=== PATIENT | male | born 1965 | race Caucasian/White ===

== ENCOUNTER 2024-09-14 04:50 | Emergency (ER) | payer MEDICAID ==
[~2024-09-14] VITALS: Ht 175.3 cm; Wt 68.0 kg
[2024-09-14] MEDS ORDERED: ONDANSETRON HCL/PF 4 MG/2 ML VIAL ONE (05:35)
[2024-09-14] MEDS: ONDANSETRON HCL/PF - ER 4 MG/2 ML VIAL IV ONE (05:36)
[2024-09-14] MEDS: IV NS 0.9% 1,000 ML IV ONE (05:36)
[2024-09-14 05:56] LABS: BASOPHILS # (AUTO) 0.1 K/uL (0.0-0.2); EOSINOPHILS % (AUTO) 0.2 % (0.0-6.0); HEMATOCRIT 29 % (39-51); HEMOGLOBIN 10.4 g/dL (13.5-17.5); LYMPHOCYTES % (AUTO) 13.3 % (20.0-44.0); MEAN CORPUSCULAR HEMOGLOBIN 30 PG (26.0-33.0); MEAN CORPUSCULAR HGB CONC 35 g/dl (31.0-36.0); MEAN CORPUSCULAR VOLUME 85 fL (80-96); MONOCYTES # (AUTO) 0.4 K/uL (0.1-1.30); MONOCYTES % (AUTO) 5.9 % (2.0-12.0); NEUTROPHILS # (AUTO) 6.1 K/uL (1.8-8.9); NEUTROPHILS % (AUTO) 79.6 % (43.0-81.0); PLATELET COUNT (AUTO) 259 K/uL (150-450); RED BLOOD CELL COUNT(AUTO) 3.46 MIL/uL (4.5-6.0); RED CELL DISTRIBUTION WIDTH 13.1 % (11.5-15.0); WHITE BLOOD COUNT (AUTO) 7.6 K/uL (4.3-11.0)
[2024-09-14] MEDS ORDERED: hydrALAZINE HCL IV 20 MG VIAL ONE (06:07)
[2024-09-14] MEDS: hydrALAZINE HCL IV 20 MG VIAL IV ONE (06:08)
[2024-09-14] MEDS ORDERED: IOHEXOL-300 100 ML VIAL IV ONE (06:14)
[2024-09-14] MEDS ORDERED: IV NS 0.9% 250 ML IV ONE (06:15)
[2024-09-14 06:18] LABS: CALCIUM, SERUM 9.4 mg/dL (8.5-10.1); CREATININE 2.3 mg/dL (0.6-1.3); POTASSIUM 3.9 mmol/L (3.5-5.1)
[2024-09-14 06:24] LABS: ALBUMIN 3.2 g/dL (3.4-5.0); BILIRUBIN,TOTAL 0.7 mg/dL (0.2-1.0)
[2024-09-14] MEDS ORDERED: NIFEdipine (10MG) 10 MG CAPSULE PO ONE (09:02)
[2024-09-14] MEDS ORDERED: METOCLOPRAMIDE HCL 10 MG/2 ML VIAL ONE (09:02)
[2024-09-14] MEDS: NIFEdipine XL (30MG) 30 MG TAB PO SCH (09:08)
[2024-09-14] MEDS: METOCLOPRAMIDE HCL 10 MG/2 ML VIAL IV ONE (09:08)
[2024-09-14 10:36] VITALS: BP 101/78; TEMP 98; O2SAT 97
== END 2024-09-14 10:36 | disposition home or self-care (01) ==
LOC: ER 04:54
DX: I10 Essential (primary) hypertension (principal); E11.9 Type 2 diabetes mellitus without complications; R51.9 Headache, unspecified; Z86.73 Personal history of transient ischemic attack (TIA), and cerebral infarction without residual deficits
CPT/HCPCS: 99285; 70450; 96374; 96375; 71045; 96361; 93005; 74177; 85025; 83690; 36415; 80053; 84484; J0360; J2765; J2405 ×2; J7030; J7050; Q9967